=== PATIENT | male | born 1995 | race African-American/Black ===

== ENCOUNTER 2017-12-05 20:56 | Emergency (ER) | payer SELFPAY ==
--- NOTE | 2017-12-05 23:21 | ER ---
Nurse's Notes [facility] Name: Flower Olsen Age: 22 yrs Sex: Male : 1995 Arrival Date: 12/05/2017 Time: 21:00 Bed 12 Private MD: Diagnosis: Presentation: 12/05 22:00 Presenting complaint: Patient states: that he was lifting a box and his right forearm fc started to cramp. Now continuing to have pain to right forearm. Transition of care: patient was not received from another setting of care. Onset of symptoms was December 05, 2017 at 19:45. Risk Assessment: Do you want to hurt yourself or someone else? Patient reports no desire to harm self or others. Initial Sepsis Screen: Does the patient meet any 2 criteria? No. Patient's initial sepsis screen is negative. Does the patient have a suspected source of infection? No. Patient's initial sepsis screen is negative. Care prior to arrival: None. 22:00 Method Of Arrival: Ambulatory fc 22:00 Acuity: WESLY 4 fc Triage Assessment: 22:21 General: Appears comfortable, slender, Behavior is calm, cooperative, appropriate for fc age. Pain: Complains of pain in palmar aspect of right forearm. EENT: No deficits noted. Neuro: Level of Consciousness is awake, alert, obeys commands, Oriented to person, place, time, situation. Cardiovascular: No deficits noted. Respiratory: No deficits noted. GI: No deficits noted. : No deficits noted. Derm: Skin is pink, warm \T\ dry. Musculoskeletal: Circulation, motion, and sensation intact. Capillary refill < 3 seconds, Range of motion: intact in all extremities, Reports pain in palmar aspect of right forearm. Injury Description: pain to right forearm. Historical: - Allergies: 22:21 No Known Allergies; fc - Home Meds: 22:21 None [Active]; fc - PMHx: 22:21 None; fc - PSHx: 22:21 None; fc - Immunization history:: Last tetanus immunization: up to date. - Social history:: Smoking status: Patient/guardian denies using tobacco, Patient/guardian denies using alcohol, street drugs. - Ebola Screening: : Patient negative for fever greater than or equal to 101.5 degrees Fahrenheit, and additional compatible Ebola Virus Disease symptoms Patient denies exposure to infectious person Patient denies travel to an Ebola-affected area in the 21 days before illness onset. Screenin:24 Abuse screen: Denies threats or abuse. Nutritional screening: No deficits noted. fc Tuberculosis screening: No symptoms or risk factors identified. Fall Risk None identified. Assessment: 22:24 Reassessment: No changes from previously documented assessment. Patient and/or family fc updated on plan of care and expected duration. Pain level reassessed. Patient is alert, oriented x 3, equal unlabored respirations, skin warm/dry/pink. 22:45 Reassessment: Pt upset about the wait. Explained that we were very busy and that I was fc sorry. He stated that he was not sure he was going to wait. 23:00 Reassessment: Pt not in room. fc Vital Signs: 22:01 BP 133 / 80; Pulse 57; Resp 16; Temp 97.4; Pulse Ox 100% ; Weight 65.77 kg; Pain 8/10; ea ED Course: 21:00 Patient arrived in ED. am2 22:00 Arm band placed on Patient placed in an exam room. fc 22:21 Triage completed. fc 22:24 Patient has correct armband on for positive identification. Call light in reach. fc 22:24 No provider procedures requiring assistance completed. Patient did not have IV access fc during this emergency room visit. Administered Medications: No medications were administered Outcome: 23:20 Patient left the ED. fc Signatures: Aspen Tolliver RN RN Esther Nation am2 Kirti Abraham RN RN ea
[2017-12-05 23:23] VITALS: BP 133/80; TEMP 97.4; O2SAT 100
== END 2017-12-05 23:20 | disposition left against medical advice (07) ==
LOC: ER 20:56
DX: Z53.21 Procedure and treatment not carried out due to patient leaving prior to being seen by health care provider (principal)
CPT/HCPCS: 99281

== ENCOUNTER 2018-10-19 20:44 | Emergency (ER) | payer SELFPAY ==
--- NOTE | 2018-10-19 21:43 | EDPHYS ---
Physician Documentation [facility] Name: Flower Olsen Age: 23 yrs Sex: Male : 1995 Arrival Date: 10/19/2018 Time: 20:49 Bed 19 Private MD: ED Physician Antonio Valencia HPI: 10/19 21:39 This 23 yrs old Black Male presents to ER via Unassigned with complaints of Shoulder kb Pain. 21:39 The patient or guardian complains of pain, that is chronic. right trapezius. Context: kb resulted from an unknown reason, The patient reports no decreased range of motion. The patient reports no obvious deformity. Onset: The symptoms/episode began/occurred "years ago". Modifying factors: the symptoms are alleviated by nothing. The symptoms are aggravated by nothing. Associated signs and symptoms: The patient has no apparent associated signs or symptoms. Severity of symptoms: At their worst the symptoms were moderate, in the emergency department the symptoms are unchanged. Treatment prior to arrival includes: no previous treatment. The patient has not experienced similar symptoms in the past. The patient has not recently seen a physician. Pt reports pain to right scapular area that radiates to neck. Started years ago and has gotten worse. Denies injury or trauma. . Historical: - Allergies: 21:56 No Known Allergies; ea - Home Meds: 21:56 None [Active]; ea - PMHx: 21:56 None; ea - PSHx: 21:56 None; ea - Immunization history:: Adult Immunizations up to date. - Social history:: Smoking status: Patient uses tobacco products, denies chronic smoking, but will smoke occasionally. - Ebola Screening: : No symptoms or risks identified at this time. ROS: 21:39 Constitutional: Negative for fever, chills, and weight loss, Cardiovascular: Negative kb for chest pain, palpitations, and edema, Respiratory: Negative for shortness of breath, cough, wheezing, and pleuritic chest pain, Abdomen/GI: Negative for abdominal pain, nausea, vomiting, diarrhea, and constipation, : Negative for injury, bleeding, discharge, and swelling, MS/Extremity: Negative for injury and deformity, Skin: Negative for injury, rash, and discoloration, Neuro: Negative for headache, weakness, numbness, tingling, and seizure. 21:39 Back: Positive for pain at rest, pain with movement, of the right trapezius and right scapular area. Exam: 21:41 Constitutional: This is a well developed, well nourished patient who is awake, alert, kb and in no acute distress. Head/Face: Normocephalic, atraumatic. Chest/axilla: Normal chest wall appearance and motion. Nontender with no deformity. No lesions are appreciated. Cardiovascular: Regular rate and rhythm with a normal S1 and S2. No gallops, murmurs, or rubs. Normal PMI, no JVD. No pulse deficits. Respiratory: Lungs have equal breath sounds bilaterally, clear to auscultation and percussion. No rales, rhonchi or wheezes noted. No increased work of breathing, no retractions or nasal flaring. Abdomen/GI: Soft, non-tender, with normal bowel sounds. No distension or tympany. No guarding or rebound. No evidence of tenderness throughout. Skin: Warm, dry with normal turgor. Normal color with no rashes, no lesions, and no evidence of cellulitis. MS/ Extremity: Pulses equal, no cyanosis. Neurovascular intact. Full, normal range of motion. Neuro: Awake and alert, GCS 15, oriented to person, place, time, and situation. Cranial nerves II-XII grossly intact. Motor strength 5/5 in all extremities. Sensory grossly intact. Cerebellar exam normal. Normal gait. 21:41 Back: pain, that is moderate, of the right trapezius and right scapular area. Vital Signs: 21:16 BP 117 / 75; Pulse 75; Resp 16; Temp 98.6(T); Pulse Ox 98% on R/A; ag4 MDM: 21:12 Patient medically screened. kb 21:39 Data reviewed: vital signs, nurses notes. Data interpreted: Pulse oximetry: on room air kb is 98 %. Interpretation: normal. Counseling: I had a detailed discussion with the patient and/or guardian regarding: the historical points, exam findings, and any diagnostic results supporting the discharge/admit diagnosis, the need for outpatient follow up, a family practitioner, to return to the emergency department if symptoms worsen or persist or if there are any questions or concerns that arise at home. Administered Medications: No medications were administered Disposition: 10/20 08:52 Co-signature as Attending Physician, Antonio Valencia MD I agree with the assessment and jolynn plan of care. Disposition: 10/19/18 21:42 Discharged to Home. Impression: Pain in right shoulder. - Condition is Stable. - Discharge Instructions: Shoulder Pain, [id number]. - Prescriptions for Cyclobenzaprine 10 mg Oral Tablet - take 1 tablet by ORAL route every 8 hours As needed; 21 tablet. Diclofenac Sodium 75 mg Oral Tablet, Delayed Release (E.C.) - take 1 tablet by ORAL route 2 times per day As needed; 30 tablet. - Medication Reconciliation Form, Thank You Letter, Antibiotic Education, Prescription Opioid Use, Work release form form. - Follow up: Emergency Department; When: As needed; Reason: Worsening of condition. Follow up: Private Physician; When: 2 - 3 days; Reason: Recheck today's complaints, Continuance of care, Re-evaluation by your physician. Signatures: Jackie Martinez, NOZZLE WORKER-C NOZZLE WORKER-Antonio Mora MD MD cha Antunez, Elena, RN RN ea Corrections: (The following items were deleted from the chart) 10/19 21:41 21:39 Back: Positive for of the right trapezius and right scapular area, kb kb 21:59 21:42 10/19/2018 21:42 Discharged to Home. Impression: Pain in right shoulder. ea Condition is Stable. Forms are Medication Reconciliation Form, Thank You Letter, Antibiotic Education, Prescription Opioid Use. Follow up: Emergency Department; When: As needed; Reason: Worsening of condition. Follow up: Private Physician; When: 2 - 3 days; Reason: Recheck today's complaints, Continuance of care, Re-evaluation by your physician. kb
--- NOTE | 2018-10-19 21:43 | ER ---
Nurse's Notes [facility] Name: Flower Olsen Age: 23 yrs Sex: Male : 1995 Arrival Date: 10/19/2018 Time: 20:49 Bed 19 Private MD: Diagnosis: Pain in right shoulder Presentation: 10/19 21:38 Presenting complaint: Patient states: Reports left shoulder pain with headache that ea started two years ago. Pt reports the pain feels like it is muscle pain and radiates down some. Transition of care: patient was not received from another setting of care. Onset of symptoms was October 19, 2018. Risk Assessment: Do you want to hurt yourself or someone else? Patient reports no desire to harm self or others. Initial Sepsis Screen: Does the patient meet any 2 criteria? No. Patient's initial sepsis screen is negative. Does the patient have a suspected source of infection? No. Patient's initial sepsis screen is negative. Care prior to arrival: None. 21:38 Method Of Arrival: Ambulatory ea 21:38 Acuity: WESLY 5 ea Triage Assessment: 21:38 General: Appears in no apparent distress. Behavior is calm, cooperative, appropriate ea for age. Pain: Complains of pain in right trapezius and right scapular area. Neuro: Level of Consciousness is awake, alert, obeys commands, Oriented to person, place, time, situation. Cardiovascular: Patient's skin is warm and dry. Respiratory: Airway is patent Respiratory effort is even, unlabored, Respiratory pattern is regular, symmetrical. Derm: Skin is pink, warm \T\ dry. Historical: - Allergies: 21:56 No Known Allergies; ea - Home Meds: 21:56 None [Active]; ea - PMHx: 21:56 None; ea - PSHx: 21:56 None; ea - Immunization history:: Adult Immunizations up to date. - Social history:: Smoking status: Patient uses tobacco products, denies chronic smoking, but will smoke occasionally. - Ebola Screening: : No symptoms or risks identified at this time. Screenin:38 Abuse screen: Denies threats or abuse. Nutritional screening: No deficits noted. ea Tuberculosis screening: No symptoms or risk factors identified. Fall Risk None identified. Assessment: 21:38 Reassessment: see triage assessment. ea 21:50 Reassessment: Patient and/or family updated on plan of care and expected duration. Pain ea level reassessed. Patient is alert, oriented x 3, equal unlabored respirations, skin warm/dry/pink. Discharge instructions given to patient, verbalized the understanding of instruction. Vital Signs: 21:16 BP 117 / 75; Pulse 75; Resp 16; Temp 98.6(T); Pulse Ox 98% on R/A; ag4 ED Course: 20:49 Patient arrived in ED. am2 21:04 Jackie Martinez FNP-C is [facility]. kb 21:04 Antonio Valencia MD is Attending Physician. kb 21:20 Arm band placed on right wrist. Patient placed in an exam room, on a stretcher, on ea pulse oximetry. 21:30 Patient has correct armband on for positive identification. Bed in low position. Call ea light in reach. Side rails up X2. 21:42 Kirti Abraham, RN is Primary Nurse. ea 21:44 Triage completed. ea 21:53 No provider procedures requiring assistance completed. Patient did not have IV access ea during this emergency room visit. Administered Medications: No medications were administered Outcome: 21:42 Discharge ordered by MD. kb 21:53 Discharged to home ambulatory, with significant other. ea 21:53 Condition: good 21:53 Discharge instructions given to patient, Instructed on discharge instructions, follow up and referral plans. medication usage, Demonstrated understanding of instructions, follow-up care, medications, Prescriptions given X 2. 21:59 Patient left the ED. ea Signatures: Jackie Martinez FNP-C FNP-Ckb Moreno, Amanda am2 Kirti Abraham, RN RN Reece Jay ag4
[2018-10-19 22:03] VITALS: BP 117/75; TEMP 98.6; O2SAT 98
== END 2018-10-19 21:59 | disposition home or self-care (01) ==
LOC: ER 20:44
DX: M25.511 Pain in right shoulder (principal); Z72.0 Tobacco use
CPT/HCPCS: 99283

== ENCOUNTER 2019-01-29 09:10 | Emergency (ER) | payer SELFPAY ==
--- NOTE | 2019-01-29 09:27 | ER ---
Nurse's Notes [facility] Name: Flower Olsen Age: 24 yrs Sex: Male : 1995 Arrival Date: 01/29/2019 Time: 09:13 Bed 18 Private MD: None, None Diagnosis: Acute upper respiratory infection, unspecified Presentation: 01/29 09:19 Presenting complaint: Sore throat, headache, body aches and nonproductive cough x 2 hb days. Denies fever. Transition of care: patient was not received from another setting of care. Onset of symptoms was January 28, 2019. Risk Assessment: Do you want to hurt yourself or someone else? Patient reports no desire to harm self or others. Initial Sepsis Screen: Does the patient meet any 2 criteria? No. Patient's initial sepsis screen is negative. Does the patient have a suspected source of infection? No. Patient's initial sepsis screen is negative. Care prior to arrival: None. 09:19 Method Of Arrival: Ambulatory hb 09:19 Acuity: WESLY 4 hb Historical: - Allergies: 09:21 No Known Allergies; hb - Home Meds: 09:21 None [Active]; hb - PMHx: 09:21 None; hb - PSHx: 09:21 None; hb - Immunization history:: Adult Immunizations up to date. - Social history:: Smoking status: Patient/guardian denies using tobacco. - Ebola Screening: : No symptoms or risks identified at this time. Screenin:25 Abuse screen: Denies threats or abuse. Nutritional screening: No deficits noted. em Tuberculosis screening: No symptoms or risk factors identified. Fall Risk None identified. Assessment: 09:25 General: Appears in no apparent distress. comfortable, Behavior is calm, cooperative, em Denies fever. Pain: Complains of pain in chest. Neuro: Level of Consciousness is awake, alert, obeys commands, Oriented to person, place, time, situation. Cardiovascular: Capillary refill < 3 seconds Patient's skin is warm and dry. Respiratory: Reports cough that is hacking, Airway is patent Respiratory effort is even, unlabored, Respiratory pattern is regular, symmetrical, Breath sounds are clear bilaterally. GI: No signs and/or symptoms were reported involving the gastrointestinal system. : No signs and/or symptoms were reported regarding the genitourinary system. EENT: Throat is clear is reddened has enlarged tonsils bilaterally. Derm: Skin is intact, is healthy with good turgor, Skin is pink, warm \T\ dry. Musculoskeletal: Capillary refill < 3 seconds, Range of motion: intact in all extremities. 09:32 Reassessment: I agree with the assessment made by Jerson SU. hoang Vital Signs: 09:21 BP 148 / 92; Pulse 91; Resp 16; Temp 98(TE); Pulse Ox 100% on R/A; Weight 74.84 kg (M); hb Height 5 ft. 10 in. (177.80 cm); Pain 5/10; 09:21 Body Mass Index 23.67 (74.84 kg, 177.80 cm) hb ED Course: 09:13 Patient arrived in ED. mr 09:13 None, None is Private Physician. mr 09:16 [facility] nh 09:16 Jean Marie Garcia MD is Attending Physician. nh 09:21 Triage completed. hb 09:21 Arm band placed on. hb 09:22 Jerson Doran LVN is Primary Nurse. em 09:25 Patient has correct armband on for positive identification. Bed in low position. Call em light in reach. Pulse ox on. NIBP on. 09:35 No provider procedures requiring assistance completed. Patient did not have IV access em during this emergency room visit. Administered Medications: 09:33 Drug: Dexamethasone 10 mg Route: IM; Site: left deltoid; em 09:50 Follow up: Response: No adverse reaction em Outcome: 09:27 Discharge ordered by . nh 09:51 Discharged to home ambulatory. em 09:51 Condition: good 09:51 Discharge instructions given to patient, Instructed on discharge instructions, follow up and referral plans. medication usage, Demonstrated understanding of instructions, follow-up care, medications, Prescriptions given X 1. 09:52 Patient left the ED. em Signatures: Silvino Borrego, RN CARL Virginia Taylor FNP FNP dc WingZaira mr Jerson Doran LVN LVN em Nereyda Stahl RN RN
--- NOTE | 2019-01-29 09:28 | EDPHYS ---
Physician Documentation [facility] Name: Flower Olsen Age: 24 yrs Sex: Male : 1995 Arrival Date: 01/29/2019 Time: 09:13 Bed 18 Private MD: None, None ED Physician Jean Marie Garcia HPI: 01/29 09:24 This 24 yrs old Black Male presents to ER via Ambulatory with complaints of Sore nh Throat, Cough, Sinus Congestion. 09:24 The patient presents with sore throat. The patient describes throat pain as constant. nh Onset: The symptoms/episode began/occurred 2 day(s) ago. Severity of symptoms: At their worst the symptoms were mild, just prior to arrival, in the emergency department the symptoms are unchanged. Modifying factors: The symptoms are alleviated by nothing, the symptoms are aggravated by nothing. Associated signs and symptoms: Pertinent positives: cough, rhinorrhea, Sore throat. The patient has not experienced similar symptoms in the past. The patient has not recently seen a physician. Historical: - Allergies: 09:21 No Known Allergies; hb - Home Meds: 09:21 None [Active]; hb - PMHx: 09:21 None; hb - PSHx: 09:21 None; hb - Immunization history:: Adult Immunizations up to date. - Social history:: Smoking status: Patient/guardian denies using tobacco. - Ebola Screening: : No symptoms or risks identified at this time. ROS: 09:24 Constitutional: Negative for fever, chills, and weight loss, Eyes: Negative for injury, nh pain, redness, and discharge, Neck: Negative for injury, pain, and swelling, Cardiovascular: Negative for chest pain, palpitations, and edema, Abdomen/GI: Negative for abdominal pain, nausea, vomiting, diarrhea, and constipation, Back: Negative for injury and pain, : Negative for injury, bleeding, discharge, and swelling, MS/Extremity: Negative for injury and deformity, Skin: Negative for injury, rash, and discoloration, Neuro: Negative for headache, weakness, numbness, tingling, and seizure, Psych: Negative for depression, anxiety, suicide ideation, homicidal ideation, and hallucinations. 09:24 ENT: Positive for nasal discharge, sinus congestion, sore throat. 09:24 Respiratory: Positive for cough, with no reported sputum. Exam: 09:24 Constitutional: This is a well developed, well nourished patient who is awake, alert, nh and in no acute distress. Head/Face: Normocephalic, atraumatic. Eyes: Pupils equal round and reactive to light, extra-ocular motions intact. Lids and lashes normal. Conjunctiva and sclera are non-icteric and not injected. Cornea within normal limits. Periorbital areas with no swelling, redness, or edema. ENT: Nares patent. No nasal discharge, no septal abnormalities noted. Tympanic membranes are normal and external auditory canals are clear. Oropharynx with no redness, swelling, or masses, exudates, or evidence of obstruction, uvula midline. Mucous membranes moist. Neck: Trachea midline, no thyromegaly or masses palpated, and no cervical lymphadenopathy. Supple, full range of motion without nuchal rigidity, or vertebral point tenderness. No Meningismus. Chest/axilla: Normal chest wall appearance and motion. Nontender with no deformity. No lesions are appreciated. Cardiovascular: Regular rate and rhythm with a normal S1 and S2. No gallops, murmurs, or rubs. Normal PMI, no JVD. No pulse deficits. Respiratory: Lungs have equal breath sounds bilaterally, clear to auscultation and percussion. No rales, rhonchi or wheezes noted. No increased work of breathing, no retractions or nasal flaring. Abdomen/GI: Soft, non-tender, with normal bowel sounds. No distension or tympany. No guarding or rebound. No evidence of tenderness throughout. Back: No spinal tenderness. No costovertebral tenderness. Full range of motion. Skin: Warm, dry with normal turgor. Normal color with no rashes, no lesions, and no evidence of cellulitis. MS/ Extremity: Pulses equal, no cyanosis. Neurovascular intact. Full, normal range of motion. Vital Signs: 09:21 BP 148 / 92; Pulse 91; Resp 16; Temp 98(TE); Pulse Ox 100% on R/A; Weight 74.84 kg (M); hb Height 5 ft. 10 in. (177.80 cm); Pain 5/10; 09:21 Body Mass Index 23.67 (74.84 kg, 177.80 cm) hb MDM: 09:16 Patient medically screened. pa 09:24 Data reviewed: vital signs, nurses notes, I have discussed the patient's pa presentation/case with the attending Emergency Department Physician; and as a result, I will discharge patient. Counseling: I had a detailed discussion with the patient and/or guardian regarding: the historical points, exam findings, and any diagnostic results supporting the discharge/admit diagnosis, the need for outpatient follow up, to return to the emergency department if symptoms worsen or persist or if there are any questions or concerns that arise at home. Administered Medications: 09:33 Drug: Dexamethasone 10 mg Route: IM; Site: left deltoid; em 09:50 Follow up: Response: No adverse reaction em Disposition: 17:55 Co-signature as Attending Physician, Jean Marie Garcia MD. Disposition: 01/29/19 09:27 Discharged to Home. Impression: Acute upper respiratory infection, unspecified. - Condition is Stable. - Discharge Instructions: Upper Respiratory Infection, Adult. - Prescriptions for Zithromax Z- Gaston 250 mg Oral Tablet - take 1 tablet by ORAL route as directed for 5 days Day 1 - take two (2) tablets one time. Day 2, 3, 4 , 5 take one (1) tablet once daily.; 6 tablet. - Medication Reconciliation Form, Thank You Letter, Antibiotic Education, Prescription Opioid Use, Work release form form. - Follow up: Private Physician; When: 2 - 3 days; Reason: Recheck today's complaints. - Problem is new. - Symptoms are unchanged. Signatures: Virginia Taylor, FITNESS SUPERVISOR FITNESS SUPERVISOR pa Jerson Doran, BUTTERMAKER CONTINUOUS CHURN BUTTERMAKER CONTINUOUS CHURN Nereyda Stahl, Jean Marie Lee RN, MD MD Corrections: (The following items were deleted from the chart) 09:52 09:27 01/29/2019 09:27 Discharged to Home. Impression: Acute upper respiratory em infection, unspecified. Condition is Stable. Forms are Medication Reconciliation Form, Thank You Letter, Antibiotic Education, Prescription Opioid Use. Follow up: Private Physician; When: 2 - 3 days; Reason: Recheck today's complaints. Problem is new. Symptoms are unchanged. pa
[2019-01-29] MEDS ORDERED: dexAMETHasone 10 MG/ML VIAL ONE (09:44)
[2019-01-29 10:12] VITALS: BP 148/92; TEMP 98; O2SAT 100
== END 2019-01-29 09:52 | disposition home or self-care (01) ==
LOC: ER 09:10
DX: J06.9 Acute upper respiratory infection, unspecified (principal)
CPT/HCPCS: 96372; 99283; J1100